=== PATIENT | male | born 1995 | race Caucasian/White ===

== ENCOUNTER 2025-08-19 16:09 | Emergency (ER) | payer OTHER ==
[2025-08-19] MEDS ORDERED: Sodium Chloride 0.9% 10 ML Syringe FLUSH PRN (16:50)
[2025-08-19] MEDS ORDERED: Sodium Chloride 0.9% 2.5 ML Syringe FLUSH PRN (16:50)
[2025-08-19] MEDS: Diphtheria,Pertussis(Acell),Tetanus Vaccine 0.5 ML Syringe IM ONE (17:02)
[2025-08-19] MEDS: Bacitracin Oint 1 GM U/D Packet TOP ONE (17:03)
[2025-08-19 17:12] LABS: BASOPHILS ABSOLUTE AUTO 0.05 K/uL (0.00-0.20); BASOPHILS PERCENT AUTO 0.4 % (0.0-1.0); EOSINOPHILS ABSOLUTE AUTO 0.02 K/uL (0.00-0.45); EOSINOPHILS PERCENT AUTO 0.1 % (0.0-6.0); IMMATURE GRAN ABSOLUTE AUTO 0.03 K/uL (0.00-0.05); IMMATURE GRAN PERCENT AUTO 0.2 % (0.0-0.4); LYMPHOCYTES ABSOLUTE AUTO 1.12 K/uL (1.00-4.80); LYMPHOCYTES PERCENT AUTO 8.2 % (24.0-44.0); MEAN PLATELET VOLUME 9.8 fL (9.4-12.4); MONOCYTES ABSOLUTE AUTO 0.77 K/uL (0.00-0.80); MONOCYTES PERCENT AUTO 5.6 % (0.0-8.0); NEUTROPHILS ABSOLUTE AUTO 11.74 K/uL (1.80-7.70); NEUTROPHILS PERCENT AUTO 85.5 % (41.0-71.0); NRBC ABSOLUTE 0.00 K/uL (0.00-0.02); NRBC PERCENT 0.0 /100WBC (0.0-0.2); PLATELET COUNT,PLT 258 K/uL (150-400); RED BLOOD CELL COUNT 5.25 M/uL (4.52-5.90); WHITE BLOOD CELL COUNT,WBC 13.73 K/uL (3.9-11.3)
[2025-08-19 17:26] LABS: INR 1.06 (0.86-1.11)
[2025-08-19 17:40] LABS: A/G RATIO 1.1 (0.9-1.6); ALANINE AMINOTRANSFERASE,ALT 48.0 IU/L (14-63); ASPARTATE AMNIOTRANSFERASE,AST 32.0 IU/L (15-37); BILIRUBIN TOTAL 1.4 mg/dL (0.2-1.0); BLOOD UREA NITROGEN,BUN 17.0 mg/dL (7.0-18.0); CARBON DIOXIDE,CO2 29.8 mmol/L (21.0-32.0); CHLORIDE,CL 104.0 mmol/L (98-107); CREATININE 1.1 mg/dL (0.8-1.3); EST CRCL DRUG DOSING (CG) 109.74 mL/min; ESTIMATED GFR 94.0 mL/min (>60); GLUCOSE RANDOM 92.0 mg/dL (74-106); POTASSIUM,K 4.6 mmol/L (3.5-5.1); PRO B-TYPE NATRIUR PEPT,BNPPRO 45.0 pg/mL (0-125); PROTEIN TOTAL,TP 8.0 g/dL (6.4-8.2); SODIUM,NA 141.0 mmol/L (136-148)
[2025-08-19 18:18] LABS: APPEARANCE,URINE CLEAR; GLUCOSE,URINE NEGATIVE (NEGATIVE); OCCULT BLOOD,URINE NEGATIVE (NEGATIVE)
[2025-08-19] MEDS: Iopamidol 755 MG/ML 500 ML Multipack Bottle IVPUSH STA (19:01)
== END 2025-08-19 19:53 | disposition home or self-care (01) ==
LOC: MW.ED 16:09
DX: S00.03XA Contusion of scalp, initial encounter (principal); S50.02XA Contusion of left elbow, initial encounter; S80.01XA Contusion of right knee, initial encounter; S40.811A Abrasion of right upper arm, initial encounter; S29.8XXA Other specified injuries of thorax, initial encounter; V49.49XA Driver injured in collision with other motor vehicles in traffic accident, initial encounter
CPT/HCPCS: 36415; 70450; 71260; 73080; 73562; 80053; 81003; 83690; 83880; 84484; 85025; 85610; 93005; 99285; Q9967; 93010; 99284